=== PATIENT | female | born 1965 | race Caucasian/White ===

== ENCOUNTER 2020-01-27 22:39 | Emergency (ER) | payer MEDICAID ==
--- NOTE | 2020-01-27 23:20 | NUR ---
RN PLACED C-COLAR ON PT, PT CONTINUES TO TRY AND GET OUT OF BED, PT INSTRUCTED TO STAY IN BED
[2020-01-27] MEDS ORDERED: DIPH,PERTUSS(ACELL),TET VAC/PF 0.5 ML IM-VACC ONE (23:30)
[2020-01-27] MEDS ORDERED: PLEASE ENTER ALLERGIES MC SCH (23:45)
[2020-01-27 23:53] LABS: BASOPHILS # (AUTO) 0.03 x10^3/uL (0-0.1); BASOPHILS % (AUTO) 1 % (0-1); EOSINOPHILS # (AUTO) 0.08 x10^3/uL (0-0.4); EOSINOPHILS % (AUTO) 2 % (1-7); LYMPHOCYTES # (AUTO) 1.99 x10^3/uL (1-3.4); LYMPHOCYTES % (AUTO) 47 % (22-44); MD NO; MEAN CORPUSCULAR HEMOGLOBIN 32.2 pg (27.0-34.8); MEAN CORPUSCULAR HGB CONC 33.4 g/dL (32.4-35.8); MEAN CORPUSCULAR VOLUME 96.5 fL (80-100); MEAN PLATELET VOLUME 6.9 fL (7.4-10.4); MONOCYTES # (AUTO) 0.39 x10^3/uL (0.2-0.8); MONOCYTES % (AUTO) 9 % (2-9); NEUTROPHILS # (AUTO) 1.71 x10^3/uL (1.8-6.8); NEUTROPHILS % (AUTO) 41 % (42-75); PLATELET COUNT 182 x10^3/uL (130-400); RED BLOOD COUNT 4.49 x10^6/uL (3.82-5.3); RED CELL DISTRIBUTION WIDTH 14.3 % (9.6-15.2)
[2020-01-28 00:01] LABS: ALANINE AMINOTRANSFERASE 36 U/L (12-78); ALBUMIN 3.2 g/dL (3.4-5.0); ANION GAP 5 mmol/L (5-15); CALCIUM 7.9 mg/dL (8.5-10.1); CHLORIDE 108 mmol/L (98-107); CREATININE 1.11 mg/dL (0.55-1.02)
--- NOTE | 2020-01-28 00:05 | NUR ---
PT REFUSED TO STAY IN BED AND WOULD CONTINUE TO TRY AND GET OUT OF BED, PROVIDER NOTIFIED
[2020-01-28 00:06] LABS: ALKALINE PHOSPHATASE 82 U/L (45-117); BILIRUBIN,TOTAL 0.3 mg/dL (0.2-1.0); TOTAL PROTEIN 6.6 g/dL (6.4-8.2)
[2020-01-28] MEDS ORDERED: ZIPRASIDONE 20 MG INJ IM ONE ×2 (00:07→00:30)
[2020-01-28] MEDS ORDERED: LORazepam 2 MG/ML, 1ML ONE (00:07)
[2020-01-28] MEDS ORDERED: LORazepam 2 MG/ML, 1ML IVPush ONE (00:30)
--- NOTE | 2020-01-28 00:47 | NUR ---
REPORT FROM DARLENE GAVIN ASSUMING CARE OF PT, PT MOVED TO ROOM 2 FOR CLOSER OBSERVATION WHILE IN THE ER
--- NOTE | 2020-01-28 00:55 | NUR ---
PT O2 SAT 84% RA, PT PLACED ON 3L NC, O2 SAT NOW UP TO 97%
--- NOTE | 2020-01-28 01:03 | NUR ---
PA AT BEDSIDE FOR FURTHER EVAL
--- NOTE | 2020-01-28 01:24 | NUR ---
PT RESTING ON JOSE CHAMBERLAIN DENIES NEEDS
--- NOTE | 2020-01-28 03:11 | NUR ---
PT STILL RESTING ON JOSE CHAMBERLAIN. CALL LIGHT IN REACH
--- NOTE | 2020-01-28 03:57 | NUR ---
PT FOUND AT NURSES STATION, NOT ABLE TO AMB STEADILY AT THIS TIME PT ESCORTED BACK TO BED AND CONNECTED TO SPO2 MONITOR
--- NOTE | 2020-01-28 04:40 | NUR ---
PT RESTING ON JOSE CHAMBERLAIN
--- NOTE | 2020-01-28 05:47 | NUR ---
PT RESTING ON JOSE CHAMBERLAIN
--- NOTE | 2020-01-28 06:15 | NUR ---
PT OUT OF BED TO RESTROOM SITTER NEARBY ASSISTED PT. PT REQ 2 PEOPLE ASSIST. BACK TO BED, CONNECTED TO MONITORING, UBLMARO MUSA
[2020-01-28 06:16] VITALS: BP 124/86
--- NOTE | 2020-01-28 07:03 | NUR ---
report received from marilyn crocker.
--- NOTE | 2020-01-28 08:13 | NUR ---
pt sleeping in rminier. resps even and unlabored. resps even and unlabored.
--- NOTE | 2020-01-28 09:02 | NUR ---
Patient given discharge instructions and they have confirmed that they understand the instructions. Patient ambulatory with steady gait.
== END 2020-01-28 09:04 | disposition home or self-care (01) ==
LOC: ED 01-28 08:55
DX: S00.83XA Contusion of other part of head, initial encounter (principal); F10.129 Alcohol abuse with intoxication, unspecified; R41.82 Altered mental status, unspecified; R94.31 Abnormal electrocardiogram [ECG] [EKG]; X58.XXXA Exposure to other specified factors, initial encounter; Y93.89 Activity, other specified; Y92.488 Other paved roadways as the place of occurrence of the external cause; Y99.8 Other external cause status; Y90.0 Blood alcohol level of less than 20 mg/100 ml
CPT/HCPCS: 36415; 70450; 70486; 72125; 80053; 80307; 85025; 93005; 96372; 96374; 99285; J2060; J3486